=== PATIENT | male | born 1950 | race Caucasian/White ===

== ENCOUNTER → 2016-12-28 | Outpatient (CLI) | payer BC ==
[~2016-12-28] MED LIST: ALL300 PO; ATEN100T PO; CLC100 PO; DTR5 PO; INDO50CA97 PO; LISI20TA3 PO; SERT-234 PO
== END | disposition home or self-care (01) ==
LOC: C.LAB1850 11:41
PROVIDERS: ATTEND Urology
DX: R39.15 Urgency of urination (principal)

== ENCOUNTER 2024-05-03 11:24 | Inpatient (IN) ==
[2024-05-03 12:34] LABS: Basophils # (auto) 0.03 K/uL (0.00-0.20); Basophils % (auto) 0.4 %; Eosinophils # (auto) 0.04 K/uL (0.00-0.50); Eosinophils % (auto) 0.6 %; Hematocrit (blood only) 43.5 % (42.0-52.0); Hemoglobin 15.4 g/dl (14.0-18.0); Immature Granulocytes # (auto) 0.04 K/uL (0.01-0.20); Immature Granulocytes % (auto) 0.6 %; Lymphocytes # (auto) 1.13 K/uL (1.20-3.40); Mean Corpuscular Hemoglobin 34.8 pg (25.0-34.0); Mean Corpuscular Hgb Conc 35.4 g/dL (32.0-36.0); Mean Corpuscular Volume 98.4 fL (80.0-100.0); Monocytes # (auto) 0.54 K/uL (0.11-0.59); Monocytes % (auto) 7.6 %; Neutrophils % (auto) 74.8 %; Platelet Count 342 K/uL (130-400); RDW Coefficient of Variation 11.1 % (11.5-14.5); RDW Standard Deviation 40.8 fL (36.4-46.3); Red Blood Count 4.42 M/uL (4.70-6.10); White Blood Count 7.08 K/ul (4.8-10.8)
[2024-05-03 12:48] LABS: Alanine Aminotransferase 20 U/L (7-52); Albumin Globulin Ratio 1.4 (0.9-2); Albumin Level 3.7 gm/dl (3.4-5.0); Alkaline Phosphatase 96 U/L (34-104); Anion Gap 6 (3-11); Aspartate Aminotransferase 25 U/L (13-39); BUN Creatinine Ratio 13.6 (10-20); Bilirubin,Total 0.6 mg/dl (0.2-1.0); Blood Urea Nitrogen 8 mg/dl (6-23); Calcium 9.3 mg/dl (8.6-10.3); Carbon Dioxide 29 mmol/L (21-32); Chloride 103 mmol/L (98-107); Est GFR (African American) 115.6 ml/min; Est GFR (Non-African American) 99.7 ml/min; Globulin 2.6 gm/dl (2.5-4.0); Glucose 110 mg/dl (70-99(Fasting)); Sodium 138 mmol/L (136-145); Total Protein 6.3 gm/dl (6.0-8.3)
[2024-05-03 12:55] LABS: Troponin I High Sensitivity 5.7 pg/ml (0-20)
--- NOTE | 2024-05-03 13:03 | Emergency Department Note ---
Impression & Plan Generalized weakness, Ambulatory dysfunction ED Provider Note HISTORY OF PRESENT ILLNESS: Patient is a 73-year-old male presenting with ambulatory dysfunction. provides most of history. Reports that the patient was admitted in [place] medically for alcohol withdraw. Reportedly has been sober since discharge. However, he reportedly was noted to have had a small stroke during his stay and was started on Eliquis. reports since being home that she "can no longer care for the patient." Reports that they were at his primary care provider's office and referred to the emergency department "for more medical workup." reports the patient is very unsteady on his feet. Reports he is unable to care for himself and "needs more medical attention." She says that the PCP thought that the patient would benefit from rehab and sent the patient for rehab placement. Denies any chest pain or shortness of breath. No abdominal pain, nausea or vomiting. No dysuria or hematuria. No reported fevers. ROS: as above PHYSICAL EXAM: Constitutional: Patient appears in no acute distress. HENT: Head: Normocephalic and atraumatic. Eyes: EOMI, PERRL Mouth/Throat: Mucous membranes moist. Neck: Trachea midline. Neck supple. Cardiovascular: RRR, No murmurs, rubs or gallops. Intact distal pulses. Pulmonary/Chest: No respiratory distress. Breath sounds clear and equal bilaterally. No wheezes or rales. Abdominal: Abdomen soft, no tenderness, rebound or guarding. Musculoskeletal: No edema, tenderness or deformity noted. Skin: Warm and dry. No rash, erythema, pallor or cyanosis Psychiatric: Appropriate mood and affect for situation. Neurological: Alert and keenly responsive. CN II-XII grossly intact, moving all extremities equally and fully. MDM: - Vitals signs showed hypertension - History obtained via patient. History as above. - Chronic conditions affecting care: HTN; CVA - Differential diagnoses include, but are not limited to: UTI; pneumonia; viral syndrome; electrolyte abnormality; ACS - Order placed for continuous cardiac monitoring. At this time, monitor showed rate of 63 bpm with normal sinus rhythm, per my interpretation. - External medical records reviewed. Paperwork that the patient's brought with them was reviewed from patient's discharge from the hospital in [place]. He was noted to be started on Eliquis during his stay for a stroke. He also was on a Ativan taper. - EKG interpreted by myself showed normal sinus rhythm. Rate bradycardic 59 bpm. QT 420. No acute ischemic changes - Laboratory workup interpreted by myself showed normal WBC; normal PT/INR; normal PT/INR; normal troponin; negative alcohol - CT head wo contrast negative for acute pathology - CXR negative for pneumonia, per my interpretation - Patient's reports that patient is very unsteady on his feet and is having difficulties doing his activities of daily living. They were referred to the emergency department for admission for placement. - Discussion was had with case mgr about patient's case and need for admission - Hospitalist consulted for admission - [facility] ASSESSMENT AND PLAN: Diagnosis: Generalized weakness; ambulatory dysfunction Plan: admit Past Med/Surg History Problem List (Updated 05/03/24 @ 13:03 by Vannessa Campos MD) Ambulatory dysfunction (Acute) Generalized weakness (Acute) Prostate cancer (Acute 01/07/15) "Rising PSA, pretreatment PSA 6.56 Status post ultrasound-guided biopsies, [place] 4+3, 3+4, 3+3 Biopsy stage T2c Prostate volume 30.4 Prostate density 0.216 " Social History Smoking Status: Never smoker Feels Safe at Home: Yes Allergies Allergies Allergy/AdvReac Type Severity Reaction Status Date / Time No Known Allergies Allergy Unverified 04/02/15 07:49 No Known Drug Allergies Allergy Unknown Uncoded 06/04/19 09:12 Home Meds Home Medications Medication Instructions Recorded Confirmed allopurinol 300 mg tablet PO .TAKE ONE TABLET BY M #90 tabs 06/04/19 06/04/19 atenolol 100 mg tablet PO .TAKE 1 TABLET DAILY. 06/04/19 06/04/19 lisinopril 20 mg tablet PO .Take 1 tablet daily 06/04/19 06/04/19 mirabegron 50 mg tablet,extended PO .Take 1 tablet PO [place] #30 tabs 06/04/19 06/04/19 release 24 hr sildenafil (pulm.hypertension) 20 PO .1-5 tablets as neede #60 tabs 06/04/19 06/04/19 mg tablet Results & Data (ED) Vital Signs Vital Signs - 24 hr 05/03/24 11:45 Temperature 36.5 C Temperature Source Temporal Artery Scan Pulse Rate 63 Respiratory Rate 18 Blood Pressure 156/88 H Blood Pressure Mean 110 Pulse Oximetry 99 Oxygen Delivery Method Room Air Sepsis Recent Fever Within 48 Hours No Sepsis New/Unexplained Change in Mental Status No Sepsis Action Taken by Nursing No Action Required Laboratory Data 05/03/24 12:15 05/03/24 12:15 Lab Results 05/03/24 Range/Units 12:15 WBC 7.08 (4.8-10.8) K/ul RBC 4.42 L (4.70-6.10) M/uL Hgb 15.4 (14.0-18.0) g/dl Hct 43.5 (42.0-52.0) % MCV 98.4 (80.0-100.0) fL MCH 34.8 H (25.0-34.0) pg MCHC 35.4 (32.0-36.0) g/dL RDW Std Deviation 40.8 (36.4-46.3) fL RDW Coeff of Aura 11.1 L (11.5-14.5) % Plt Count 342 (130-400) K/uL MPV 10.0 (9.4-12.4) fL Immature Gran % (Auto) 0.6 % Neut % (Auto) 74.8 % Lymph % (Auto) 16.0 % [place] % (Auto) 7.6 % Eos % (Auto) 0.6 % Baso % (Auto) 0.4 % Neut # (Auto) 5.30 (1.40-6.50) K/uL Lymph # (Auto) 1.13 L (1.20-3.40) K/uL [place] # (Auto) 0.54 (0.11-0.59) K/uL Eos # (Auto) 0.04 (0.00-0.50) K/uL Baso # (Auto) 0.03 (0.00-0.20) K/uL Immature Gran # (Auto) 0.04 (0.01-0.20) K/uL PT 10.3 (9.0-12.0) Seconds INR 0.9 (0.9-1.1) APTT 27 (21-31) Seconds PTT Ratio 1.0 Sodium 138 (136-145) mmol/L Potassium 4.0 (3.5-5.1) mmol/L Chloride 103 (98-107) mmol/L Carbon Dioxide 29 (21-32) mmol/L Anion Gap 6 (3-11) BUN 8 (6-23) mg/dl Creatinine 0.59 L (0.6-1.4) mg/dl Est Cr Clr Drug Dosing Not Reportable Est GFR ( Amer) 115.6 ml/min Est GFR (Non-Af Amer) 99.7 ml/min BUN/Creatinine Ratio 13.6 (10-20) Glucose 110 H (70-99(Fasting)) mg/dl Calcium 9.3 (8.6-10.3) mg/dl Magnesium 2.1 (1.7-2.4) mg/dl Total Bilirubin 0.6 (0.2-1.0) mg/dl AST 25 (13-39) U/L ALT 20 (7-52) U/L Alkaline Phosphatase 96 (34-104) U/L Troponin I High Sens 5.7 (0-20) pg/ml Total Protein 6.3 (6.0-8.3) gm/dl Albumin 3.7 (3.4-5.0) gm/dl Globulin 2.6 (2.5-4.0) gm/dl Albumin/Globulin Ratio 1.4 (0.9-2) Ethyl Alcohol mg/dL < 10.0 (<10.0) mg/dl Imaging Data Radiologist's Impression: Head CT 05/03/24 12:24 CT head/brain wo con CLINICAL HISTORY: weakness Technique: Contiguous axial CT images of the head were acquired from the base of the skull to the vertex without intravenous contrast administration. Images were viewed in brain, subdural and bone windows. Automated dose lowering techniques and/or adjustment according to patient size were utilized for this exam. Comparison: None available at the time of this dictation. Findings: Areas of decreased attenuation are present in the periventricular and subcortical white matter bilaterally consistent with small vessel ischemic disease. Generalized cerebral atrophy with commensurate enlargement of the ventricles, sulci, and cisterns is also present. There is no acute intracranial hemorrhage or evidence of acute territorial infarction. No shift of the midline structures, mass effect, or extra-axial abnormalities are shown. Atherosclerotic calcifications are present in the intracranial segments of the internal carotid arteries. Imaged portions of the paranasal sinuses and mastoid air cells are clear. The orbits appear normal. There are no acute fractures of the calvaria or scalp swelling. Impression: No acute intracranial hemorrhage, no evidence of acute territorial infarction or other acute intracranial disease process. ACT 112: Negative or not required by law. Electronically signed by: Manas Romero M.D. 05/03/2024 1:19 PM Discharge Plan Visit Data Chief Complaint: Referred by Doctor Stated Complaint: EVALUATION FOR STROKE SYMPTOMS ED Provider: Vannessa Campos Discharge Problem: Generalized weakness, Ambulatory dysfunction Forms Stand Alone Forms: [facility] Prescriptions Prescriptions: No Action lisinopril 20 mg tablet PO .Take 1 tablet daily atenolol 100 mg tablet PO .TAKE 1 TABLET DAILY. Myrbetriq 50 mg tablet extended release 24 hr PO .Take 1 tablet PO [place] Qty: 30 sildenafil (pulm.hypertension) 20 mg tablet PO .1-5 tablets as neede Qty: 60 allopurinol 300 mg tablet PO .TAKE ONE TABLET BY M Qty: 90 Referrals Referrals: Marc George MD [Outside Practitioners] -
[2024-05-03 13:09] LABS: INR 0.9 (0.9-1.1); Partial Thromboplastin Time 27 Seconds (21-31); Prothrombin Time 10.3 Seconds (9.0-12.0)
[2024-05-03 13:16] LABS: Magnesium 2.1 mg/dl (1.7-2.4)
--- NOTE | 2024-05-03 13:20 | CT Scan Report ---
CT head/brain wo con CLINICAL HISTORY: weakness Technique: Contiguous axial CT images of the head were acquired from the base of the skull to the joey reanna without intravenous contrast administration. Images were viewed in brain, subdural and bone [facility]. Automated dose lowering techniques and/or adjustment according to patient size were utilized for this exam. Comparison: None available at the time of this dictation. Findings: Areas of decreased attenuation are present in the periventricular and subcortical white matter bilate rally consistent with small vessel ischemic disease. Generalized cerebral atrophy with commensurate e nlargement of the ventricles, sulci, and cisterns is also present. There is no acute intracranial hem orrhage or evidence of acute territorial infarction. No shift of the midline structures, mass effect, or extra-axial abnormalities are shown. Atherosclerotic calcifications are present in the intracran ial segments of the internal carotid arteries. Imaged portions of the paranasal sinuses and mastoid air cells are clear. The orbits appear normal. There are no acute fractures of the calvaria or scalp swelling. Impression: No acute intracranial hemorrhage, no evidence of acute territorial infarction or other acute intracra nial disease process. ACT 112: Negative or not required by law. Electronically signed by: Manas Romero M.D. 05/03/2024 1:19 PM
--- NOTE | 2024-05-03 13:31 | XRay Report ---
SINGLE VIEW CHEST CLINICAL HISTORY: Atypical chest pain FINDINGS: An AP, portable, upright chest radiograph is compared to study dated 03/17/2015. The heart i s enlarged measuring atherosclerotic calcification of the thoracic aorta. The pulmonary vasculature i s noncongested. Mild scarring/atelectasis is seen at the lung bases. The lungs and pleural spaces are otherwise clear. No pneumothorax is seen. The skeletal structures are osteopenic. The bony thorax is grossly intact. Arthritic change is noted in the shoulders. IMPRESSION: Cardiomegaly with no active disease in the chest. ACT 112: Negative or not required by law. Electronically signed by: Vernon Schreiber M.D. 05/03/2024 1:30 PM
[2024-05-03] MEDS ORDERED: ONDANSETRON INJ 2 MG/ML 2 ML VIAL IV PRN (13:32)
[2024-05-03] MEDS ORDERED: ALUMINUM/MAGNESIUM SUSP 30 ML UDC PO PRN (13:32)
[2024-05-03] MEDS ORDERED: ACETAMINOPHEN 325 MG TAB PO PRN (13:32)
--- NOTE | 2024-05-03 14:30 | History & Physical Report ---
Date of Service May 03, 2024 Assessment & Plan (1) HTN (hypertension): Plan: BP remains elevated, patient took his Lisinopril today will add Nifedipine (2) Depression: Plan: continue Sertraline, denies suicidal ideations (3) CVA (cerebral vascular accident): Plan: has mild right sided weakness continue current meds will add Atorvastatin obtain lipid profile, hemoglobin A1 c consult neurology has difficulties ambulating consult PT (4) Alcohol abuse: Plan: sober, went through detox on Naltrexone Folic acid Thiamine History of Present Illness Chief Complaint: generalized weakness Primary Care Provider: Marc George MD Patient is a 73-year-old male with h/o HTN, depression, alcohol abuse , prostate ca, h/o TURP, patient was living with his children in [place] for 1.5 years stopped taking his med and was heavily drinking alcohol. He who was recently hospitalized in [place] for alcohol withdraw. Reportedly has been sober since discharge. However, he reportedly was noted to have had a small stroke during his stay and right leg DVT was started on Eliquis. reports since being home that she "can no longer care for the patient." Reports that they were at his primary care provider's office and referred to the emergency department "for more medical workup." reports the patient is very unsteady on his feet. Reports he is unable to care for himself and "needs more medical attention." Denies any chest pain or shortness of breath. No abdominal pain, nausea or vomiting. No dysuria or hematuria. No reported fevers. Allergies Allergy/AdvReac Type Severity Reaction Status Date / Time No Known Allergies Allergy Unverified 05/03/24 13:49 No Known Drug Allergies Allergy Unknown 0 Uncoded 05/03/24 13:49 Home Medications Medication Instructions Recorded Confirmed Type apixaban 5 mg tablet (Eliquis) 5 mg PO BID 05/03/24 05/03/24 History folic acid 1 mg tablet 1 mg PO DAILY 05/03/24 05/03/24 History lisinopril 40 mg tablet 40 mg PO DAILY 05/03/24 05/03/24 History multivitamin with folic acid 400 1 tab PO DAILY 05/03/24 05/03/24 History mcg tablet naltrexone 50 mg tablet 50 mg PO CQWK 05/03/24 05/03/24 History polyethylene glycol 3350 17 17 g PO DAILY 05/03/24 05/03/24 History gram/dose oral powder (Miralax) sertraline 50 mg tablet 50 mg PO DAILY 05/03/24 05/03/24 History thiamine HCl (vitamin B1) 100 mg 100 mg PO DAILY 05/03/24 05/03/24 History tablet (Vitamin B-1) Past Med/Surg History Problem List (Updated 05/03/24 @ 14:21 by Ynes Verduzco MD) Prostate cancer Osteoarthrosis Gout, joint Alcohol abuse CVA (cerebral vascular accident) Depression HTN (hypertension) Ambulatory dysfunction (Acute) Generalized weakness (Acute) Prostate cancer (Acute 01/07/15) "Rising PSA, pretreatment PSA 6.56 Status post ultrasound-guided biopsies, [place] 4+3, 3+4, 3+3 Biopsy stage T2c Prostate volume 30.4 Prostate density 0.216 " Social History Smoking Status: Never smoker Feels Safe at Home: Yes Review of Systems Review of Systems: All systems reviewed & are unremarkable except as noted in Subjective Physical Exam Physical Exam: head atraumatic neck supple chest CTA b/l heart S1s2 regular, no murmurs,gallops abdomen soft, nt, nd, bs present extremities right leg swelling present neuro AAO times 2, right arm, leg mild weakness, gait was nor tested Results & Data Results & Data Vital Signs (Past 12 Hours) Vital Signs Temp Pulse Pulse Resp BP BP Pulse Ox 05/03/24 13:37 58 L 05/03/24 13:32 58 L 16 180/87 H 97 05/03/24 11:45 36.5 C 63 18 156/88 H 99 O2 Del Method 05/03/24 13:37 05/03/24 13:32 05/03/24 11:45 Room Air Laboratory Results Abnormal lab results 05/03/24 Range/Units 12:15 RBC 4.42 L (4.70-6.10) M/uL MCH 34.8 H (25.0-34.0) pg RDW Coeff of Aura 11.1 L (11.5-14.5) % Lymph # (Auto) 1.13 L (1.20-3.40) K/uL Creatinine 0.59 L (0.6-1.4) mg/dl Glucose 110 H (70-99(Fasting)) mg/dl Diagnostic Findings Chest X-Ray 05/03/24 11:49 SINGLE VIEW CHEST CLINICAL HISTORY: Atypical chest pain FINDINGS: An AP, portable, upright chest radiograph is compared to study dated 03/17/2015. The heart is enlarged measuring atherosclerotic calcification of the thoracic aorta. The pulmonary vasculature is noncongested. Mild scarring/atelectasis is seen at the lung bases. The lungs and pleural spaces are otherwise clear. No pneumothorax is seen. The skeletal structures are osteopenic. The bony thorax is grossly intact. Arthritic change is noted in the shoulders. IMPRESSION: Cardiomegaly with no active disease in the chest. ACT 112: Negative or not required by law. Electronically signed by: Vernon Schreiber M.D. 05/03/2024 1:[address] 05/03/24 12:24 CT head/brain wo con CLINICAL HISTORY: weakness Technique: Contiguous axial CT images of the head were acquired from the base of the skull to the vertex without intravenous contrast administration. Images were viewed in brain, subdural and bone windows. Automated dose lowering techniques and/or adjustment according to patient size were utilized for this exam. Comparison: None available at the time of this dictation. Findings: Areas of decreased attenuation are present in the periventricular and subcortical white matter bilaterally consistent with small vessel ischemic disease. Generalized cerebral atrophy with commensurate enlargement of the ventricles, sulci, and cisterns is also present. There is no acute intracranial hemorrhage or evidence of acute territorial infarction. No shift of the midline structures, mass effect, or extra-axial abnormalities are shown. Atherosclerotic calcifications are present in the intracranial segments of the internal carotid arteries. Imaged portions of the paranasal sinuses and mastoid air cells are clear. The orbits appear normal. There are no acute fractures of the calvaria or scalp swelling. Impression: No acute intracranial hemorrhage, no evidence of acute territorial infarction or other acute intracranial disease process. ACT 112: Negative or not required by law. Electronically signed by: Manas Romero M.D. 05/03/2024 1:19 PM ECG Additional Comments: sinus bradycardia Code Status & VTE Plan Code Status full PG Care Time/CCT Total # of Minutes Spent Total Time Spent with Patient: Total time spent is greater than 50% in coordination of care (as documented) at patient's floor/unit and/or counseling patient: Coding Level of Care Code 52689 INT INP/OBS CARE 3/75MIN Diagnoses HTN (hypertension) I10 Depression F32.A CVA (cerebral vascular accident) I63.9 Alcohol abuse F10.10
[2024-05-03 14:35] LABS: Influenza A virus by PCR Negative (Neg); Influenza B virus by PCR Negative (Neg); RSV by PCR Negative (Neg); SARS CoV2 RNA(COVID-19) Ceph NEGATIVE (Negative)
[2024-05-03] MEDS: NIFEdipine EXTENDED REL 30 MG TABCR PO STA ×2 (14:48→18:45)
[2024-05-03 15:11] LABS: Chol HDL Ratio 2.4 (0-5); Cholesterol 194 mg/dl (0-200); HDL Cholesterol 82 mg/dl; LDL Cholesterol Calculated 94 mg/dl; Triglycerides 89 mg/dl (0-150); VLDL Cholesterol 18 mg/dl (0-30)
--- NOTE | 2024-05-03 15:22 | Electrocardiogram Report ---
Test Reason : Blood Pressure : / mmHG Vent. Rate : 059 BPM Atrial Rate : 059 BPM P-R Int : 172 ms QRS Dur : 076 ms QT Int : 420 ms P-R-T Axes : -23 -11 043 degrees QTc Int : 415 ms Sinus bradycardia Otherwise normal ECG When compared with ECG of 17-MAR-2015 12:54, Questionable change in QRS axis Confirmed by Blas Christian ([id number]) on 05/03/2024 3:21:56 PM Referred By: REFERRED SELF Confirmed By:Blas Christian
[2024-05-03 15:32] LABS: Appearance Urine Clear (Clear); Bilirubin Urine Negative (Negative); Blood Urine Negative (Negative); Color Urine Yellow; Glucose Urine UA Negative (Negative); Ketones Urine Negative (Negative); Leukocyte Esterase Urine Negative (Negative); Nitrite Urine Negative (Negative); Protein Urine Negative (Negative); Specific Gravity Urine 1.012 (1.000-1.030); Urobilinogen Urine Negative (Negative); pH Urine 8.5 (4.5-7.5)
[2024-05-03] MEDS ORDERED: lisinopril 20 MG TAB PO SCH (16:42)
--- NOTE | 2024-05-03 16:46 | Ultrasound Report ---
ULTRASOUND OF THE CAROTID ARTERIES CLINICAL HISTORY: CVA TECHNIQUE: Real-time, grayscale, and color Doppler sonography of the bilateral carotid arteries is pe rformed. Images are reviewed in the transverse and longitudinal planes. COMPARISON: None available at the time of this dictation. FINDINGS: The carotid arteries are patent bilaterally and demonstrate antegrade flow. There is moderate atheros clerotic plaque on the right and mild atherosclerotic plaque on the left. Normal doppler arterial wav eforms are seen throughout. Velocity measurements are listed below. Common carotid peak systolic velocity (cm/sec): RIGHT: 96 LEFT: 103 ICA peak systolic velocity (cm/sec): RIGHT: 90 LEFT: 87 ICA/CC peak systolic ratio: RIGHT: 0.9 LEFT: 0.8 Antegrade flow was shown in the vertebral arteries. The external carotid arteries are patent. IMPRESSION: 1. There is no sonographic evidence of hemodynamically significant stenosis in the right or left car otid arterial system. 2. Antegrade flow is shown in the vertebral arteries. Society of Radiologists in Ultrasound consensus guidelines: Normal: ICA PSV is <125 cm/sec and no plaque or intimal thickening is visible sonographically additional criteria include ICA/CCA PSV ratio <2.0 and ICA EDV <40 cm/sec <50% ICA stenosis: ICA PSV is <125 cm/sec and plaque or intimal thickening is visible sonographically additional criteria include ICA/CCA PSV ratio <2.0 and ICA EDV <40 cm/sec 50-69% ICA stenosis: ICA PSV is 125-230 cm/sec and plaque is visible sonographically additional criteria include ICA/CCA PSV ratio of 2.0-4.0 and ICA EDV of 40-100 cm/sec ?70% ICA stenosis but less than near occlusion: ICA PSV is >230 cm/sec and visible plaque and luminal narrowing are seen at castellanos-scale and color Dopp ler ultrasound (the higher the Doppler parameters lie above the threshold of 230 cm/sec, the greater the likelihood of severe disease) additional criteria include ICA/CCA PSV ratio >4 and ICA EDV >100 cm/sec ACT 112: Negative or not required by law. Electronically signed by: Manas Romero M.D. 05/03/2024 4:45 PM
[2024-05-03] MEDS: NALTREXONE HCL 50 MG TAB PO SCH (18:01)
[2024-05-03] MEDS: allopurinoL 100 MG TAB PO SCH (18:01)
[2024-05-03] MEDS ORDERED: hydrALAZINE HCL 25 MG TAB PO PRN (18:04)
[2024-05-03] MEDS ORDERED: APIXABAN 5 MG TABLET PO SCH (21:00)
--- NOTE | 2024-05-03 21:30 | Magnetic Resonance Report ---
MR brain wo con CLINICAL HISTORY: cva TECHNIQUE: Multiplanar and multisequence MR images of the brain were obtained without intravenous con trast. Comparison: Comparison is made to CT head 04/25/2024 FINDINGS: No abnormal restricted diffusion is identified. Foci of T2 and FLAIR hyperintensity are noted in the paraventricular areas consistent with chronic small vessel ischemic disease. Ex vacuo ventriculomegal y and sulcal enlargement is noted compatible with diffuse volume loss. Focal encephalomalacia is in t he cerebellum. No mass is seen. There is no mass effect or midline shift. There is no evidence of acu te intraparenchymal hemorrhage. No extra axial fluid collections are seen. The corpus callosum, pitui tary gland, and cerebellar tonsils appear grossly unremarkable. Flow voids of the major intracranial arterial vessels are identified. The imaged portions of the para nasal sinuses, mastoid air cells, and orbits are unremarkable. IMPRESSION: No acute abnormality and in particular no evidence of acute infarct. ACT 112: Negative or not required by law. Electronically signed by: Manas Romero M.D. 05/03/2024 9:29 PM
[2024-05-03] MEDS: ATORVASTATIN 40 MG TAB PO SCH (21:40)
[2024-05-03] MEDS: APIXABAN 5 MG TABLET PO SCH (21:40)
[2024-05-03 22:44] LABS: Estimated Average Glucose 103 mg/dl; Hemoglobin A1C 5.2 % (4.5-5.6)
[2024-05-04] MEDS: POLYETHYLENE (MIRALAX) 17 GM PACK PO PRN (08:12)
[2024-05-04] MEDS: lisinopril 40 MG TAB PO SCH (08:12)
[2024-05-04] MEDS: THIAMINE HCL 100 MG TAB PO SCH (08:13)
[2024-05-04] MEDS: MULTIVITAMIN TAB PO SCH (08:13)
[2024-05-04] MEDS: FOLIC ACID 1 MG TAB PO SCH (08:13)
[2024-05-04] MEDS: SERTRALINE HCL 50 MG TABLET PO SCH (08:13)
[2024-05-04] MEDS ORDERED: hydrALAZINE HCL 20 MG/ML VIAL IV PRN (08:39)
[2024-05-04] MEDS ORDERED: FOLIC ACID 1 MG TAB PO SCH (09:00)
[2024-05-04] MEDS ORDERED: POLYETHYLENE (MIRALAX) 17 GM PACK PO SCH (09:00)
[2024-05-04] MEDS ORDERED: THIAMINE HCL 100 MG TAB PO SCH (09:00)
--- NOTE | 2024-05-04 12:09 | Hospitalist Progress Note ---
Date of Service May 04, 2024 Assessment & Plan (1) HTN (hypertension): Plan: Now normalized after receiving 1 dose of nifedipine in the ED. Continue lisinopril. (2) Depression: Plan: Stable. Continue Sertraline. Denies suicidal ideations (3) CVA (cerebral vascular accident): Plan: He insists he had no recent CVA and was not recently hospitalized. Atorvastatin was added on admission. Admission brain MRI scan reveals some cerebellar malacia but this could be due to alcohol intake. Nothing acute. Carotid Doppler study is unremarkable. (4) Alcohol abuse: Plan: He recently went through detox. He takes Naltrexone. Continue folic acid and thiamine Plan To be determined Admission and Anticipated Discharge Date Admission Date: May 03, 2024 Subjective Alert and oriented. He is not sure why he is hospitalized. Apparently he was living in [place] recently when he fell down but could not get up by himself. He was alone at the time. He denies having a recent CVA. He also denies recently seeing Dr. Castano. OT and PT assessments have been requested. Blood pressure was elevated in the ED and has now normalized after he received nifedipine once. He remains on lisinopril 40 mg daily. Review of Systems 2 Review of Systems: Constitutional-no fever or chills ENT-no blurred vision, no double vision, no epistaxis, no sore throat Respiratory-no cough, no wheezing, no shortness of breath Cardiac-no palpitations, no chest pain, no syncope GI-no nausea, vomiting, diarrhea, melena, hematochezia -no urinary retention, no urinary incontinence, no dysuria, no hematuria Musculoskeletal-no joint pain, no muscle tenderness Skin-no bruising, no rashes, no pruritus Neuro-no isolated weakness, no paresthesia Psych-no depression, no anxiety Physical Exam 2 Physical Exam: General-alert and oriented x3, no fever, no chills HEENT-head atraumatic and normocephalic, pupils equal and reactive to light, extraocular muscles intact Neck-no lymphadenopathy or thyromegaly, trachea midline Chest-clear to auscultation. No rales, wheezing or rhonchi Cardiac-regular rate and rhythm, normal S1 and S2 Abdomen-normal bowel sounds, no hepatosplenomegaly Extremities-no cyanosis, clubbing, or edema Neuro-cranial nerves II through XII intact, motor and sensory function within normal limits, strength symmetrical, no focal deficits Psych-flat affect Results & Data Results & Data Vital Signs (Past 12 Hours) Vital Signs Temp Pulse Pulse Resp BP BP Pulse Ox 05/04/24 11:38 37 C 60 17 120/69 94 05/04/24 07:34 63 05/04/24 07:29 37.1 C 61 18 107/62 97 05/04/24 04:12 37.0 C 69 18 94/62 L 96 O2 Del Method 05/04/24 11:38 Room Air 05/04/24 07:34 05/04/24 07:29 Room Air 05/04/24 04:12 Room Air Laboratory Results 05/03/24 12:15 05/03/24 12:15 PG Care Time/CCT Total # of Minutes Spent Total Time Spent with Patient: Total time spent is greater than 50% in coordination of care (as documented) at patient's floor/unit and/or counseling patient: Coding Level of Care Code 45038 SUB INP/OBS CARE 3/50MIN Diagnoses HTN (hypertension) I10 Depression F32.A CVA (cerebral vascular accident) I63.9 Alcohol abuse F10.10
--- NOTE | 2024-05-04 15:32 | XCELERA ---
[id number]
--- NOTE | 2024-05-05 15:01 | Hospitalist Progress Note ---
Date of Service May 05, 2024 Assessment & Plan (1) HTN (hypertension): Plan: Now normalized after receiving 1 dose of nifedipine in the ED. Continue lisinopril. (2) Depression: Plan: Stable. Continue Sertraline. Denies suicidal ideations (3) CVA (cerebral vascular accident): Plan: He insists he had no recent CVA and was not recently hospitalized. Atorvastatin was added on admission. Admission brain MRI scan reveals some cerebellar malacia but this could be due to alcohol intake. Nothing acute. Carotid Doppler study is unremarkable. (4) Alcohol abuse: Plan: He recently went through detox. He takes Naltrexone. Continue folic acid and thiamine Plan To be determined. Awaiting OT and PT evaluations Admission and Anticipated Discharge Date Admission Date: May 03, 2024 Subjective Alert and oriented. No new problems. Cardiac echo reveals normal ejection fraction with moderate LVH and no evidence of atrial septal defect. Thyroid levels were checked and are normal. Blood pressure remained stable after Procardia given once on admission. Blood pressure 130/69 this morning and heart rate 52. OT and PT evaluations will determine disposition. Review of Systems 2 Review of Systems: Constitutional-no fever or chills ENT-no blurred vision, no double vision, no epistaxis, no sore throat Respiratory-no cough, no wheezing, no shortness of breath Cardiac-no palpitations, no chest pain, no syncope GI-no nausea, vomiting, diarrhea, melena, hematochezia -no urinary retention, no urinary incontinence, no dysuria, no hematuria Musculoskeletal-no joint pain, no muscle tenderness Skin-no bruising, no rashes, no pruritus Neuro-no isolated weakness, no paresthesia Psych-no depression, no anxiety Physical Exam 2 Physical Exam: General-alert and oriented x3, no fever, no chills HEENT-head atraumatic and normocephalic, pupils equal and reactive to light, extraocular muscles intact Neck-no lymphadenopathy or thyromegaly, trachea midline Chest-clear to auscultation. No rales, wheezing or rhonchi Cardiac-regular rate and rhythm, normal S1 and S2 Abdomen-normal bowel sounds, no hepatosplenomegaly Extremities-no cyanosis, clubbing, or edema Neuro-cranial nerves II through XII intact, motor and sensory function within normal limits, strength symmetrical, no focal deficits Psych-flat affect Results & Data Results & Data Vital Signs (Past 12 Hours) Vital Signs Temp Pulse Pulse Resp BP BP Pulse Ox 05/05/24 13:52 86 05/05/24 11:03 36.7 C 60 16 116/71 96 05/05/24 08:05 36.9 C 52 L 16 130/69 97 05/05/24 08:00 60 05/05/24 04:15 37 C 55 L 18 125/67 96 O2 Del Method 05/05/24 13:52 05/05/24 11:03 Room Air 05/05/24 08:05 Room Air 05/05/24 08:00 05/05/24 04:15 Room Air Laboratory Results 05/03/24 12:15 05/03/24 12:15 PG Care Time/CCT Total # of Minutes Spent Total Time Spent with Patient: Total time spent is greater than 50% in coordination of care (as documented) at patient's floor/unit and/or counseling patient: Coding Level of Care Code 66494 SUB INP/OBS CARE 2/35MIN Diagnoses HTN (hypertension) I10 Depression F32.A CVA (cerebral vascular accident) I63.9 Alcohol abuse F10.10
--- NOTE | 2024-05-06 15:22 | Hospitalist Progress Note ---
Date of Service May 06, 2024 Assessment & Plan (1) HTN (hypertension): Plan: Now normalized after receiving 1 dose of nifedipine in the ED. Continue lisinopril. (2) Depression: Plan: Stable. Continue Sertraline. Denies suicidal ideations (3) CVA (cerebral vascular accident): Plan: He insists he had no recent CVA and was not recently hospitalized. Atorvastatin was added on admission. Admission brain MRI scan reveals some cerebellar malacia but this could be due to alcohol intake. Nothing acute. Carotid Doppler study is unremarkable. (4) Alcohol abuse: Plan: He recently went through detox. He takes Naltrexone. Continue folic acid and thiamine Plan Awaiting placement at either [facility] or [facility]. He is medically stable. Admission and Anticipated Discharge Date Admission Date: May 03, 2024 Subjective Alert and oriented. No new problems. Referrals have been made for placement at [facility] or [facility]. Review of Systems 2 Review of Systems: Constitutional-no fever or chills ENT-no blurred vision, no double vision, no epistaxis, no sore throat Respiratory-no cough, no wheezing, no shortness of breath Cardiac-no palpitations, no chest pain, no syncope GI-no nausea, vomiting, diarrhea, melena, hematochezia -no urinary retention, no urinary incontinence, no dysuria, no hematuria Musculoskeletal-no joint pain, no muscle tenderness Skin-no bruising, no rashes, no pruritus Neuro-no isolated weakness, no paresthesia Psych-no depression, no anxiety Physical Exam 2 Physical Exam: General-alert and oriented x3, no fever, no chills HEENT-head atraumatic and normocephalic, pupils equal and reactive to light, extraocular muscles intact Neck-no lymphadenopathy or thyromegaly, trachea midline Chest-clear to auscultation. No rales, wheezing or rhonchi Cardiac-regular rate and rhythm, normal S1 and S2 Abdomen-normal bowel sounds, no hepatosplenomegaly Extremities-no cyanosis, clubbing, or edema Neuro-cranial nerves II through XII intact, motor and sensory function within normal limits, strength symmetrical, no focal deficits Psych-flat affect Results & Data Results & Data Vital Signs (Past 12 Hours) Vital Signs Temp Pulse Pulse Resp BP Pulse Ox O2 Del Method 05/06/24 14:00 80 05/06/24 11:37 36.6 C 75 18 111/69 98 Room Air 05/06/24 07:33 36.7 C 55 L 16 131/67 98 Room Air 05/06/24 05:30 53 L Laboratory Results 05/03/24 12:15 05/03/24 12:15 PG Care Time/CCT Total # of Minutes Spent Total Time Spent with Patient: Total time spent is greater than 50% in coordination of care (as documented) at patient's floor/unit and/or counseling patient: Coding Level of Care Code 70894 SUB INP/OBS CARE 2/35MIN Diagnoses HTN (hypertension) I10 Depression F32.A CVA (cerebral vascular accident) I63.9 Alcohol abuse F10.10
--- NOTE | 2024-05-07 09:11 | Hospitalist Progress Note ---
Date of Service May 07, 2024 Assessment & Plan (1) HTN (hypertension): Plan: Now normalized after receiving 1 dose of nifedipine in the ED. Continue lisinopril. (2) Depression: Plan: Stable. Continue Sertraline. Denies suicidal ideations or severe depression (3) CVA (cerebral vascular accident): Plan: He insists he had no recent CVA and was not recently hospitalized. Atorvastatin was added on admission. Admission brain MRI scan reveals some cerebellar malacia but this could be due to alcohol intake. Nothing acute. Carotid Doppler study is unremarkable. (4) Alcohol abuse: Plan: He recently went through detox. He takes Naltrexone. Continue folic acid and thiamine Plan Therapy evaluations are in the middle we will see if insurance will permit beneficial short-term rehab Admission and Anticipated Discharge Date Admission Date: May 03, 2024 Subjective Patient alert and oriented. Did fairly well with therapy evaluations. Still awaiting if patient would benefit from subacute rehab. However is improving daily Physical Exam Physical Exam: Awake alert oriented x 3 no complaints physically other than weakness Card exam is regular without murmur Lungs are clear without wheezes or crackles Results & Data Results & Data Vital Signs (Past 12 Hours) Vital Signs Temp Pulse Pulse Resp BP Pulse Ox O2 Del Method 05/07/24 08:40 98.2 F 54 L 16 149/80 H 97 Room Air 05/07/24 07:29 60 05/06/24 23:25 98.4 F 62 18 136/85 96 Room Air 05/06/24 21:51 66 PG Care Time/CCT Total # of Minutes Spent Total Time Spent with Patient: Total time spent is greater than 50% in coordination of care (as documented) at patient's floor/unit and/or counseling patient: Coding Level of Care Code 79642 SUB INP/OBS CARE 2/35MIN Diagnoses HTN (hypertension) I10 Depression F32.A CVA (cerebral vascular accident) I63.9 Alcohol abuse F10.10
[2024-05-07] MEDS: MELATONIN 3 MG TAB PO PRN (21:31)
[2024-05-08 06:29] LABS: Hematocrit (blood only) 39.7 % (42.0-52.0); Hemoglobin 13.5 g/dl (14.0-18.0); Mean Corpuscular Hemoglobin 33.5 pg (25.0-34.0); Mean Corpuscular Volume 98.5 fL (80.0-100.0); Mean Platelet Volume 9.9 fL (9.4-12.4); Platelet Count 312 K/uL (130-400); RDW Standard Deviation 40.1 fL (36.4-46.3); Red Blood Count 4.03 M/uL (4.70-6.10); White Blood Count 6.69 K/ul (4.8-10.8)
[2024-05-08 06:35] LABS: Calcium 8.3 mg/dl (8.6-10.3); Creatinine Clr Calc Pharmacy 97.7 ml/min; Est GFR (African American) 113.3 ml/min; Est GFR (Non-African American) 97.7 ml/min; Magnesium 1.8 mg/dl (1.7-2.4); Potassium 4.1 mmol/L (3.5-5.1)
--- NOTE | 2024-05-08 13:29 | Discharge Summary ---
Discharge Summary Date of Service May 08, 2024 Principal Dx & Hospital Course #1 = Principal Diagnosis (1) HTN (hypertension): Patient arrived emergency department with ambulatory dysfunction hypertensive urgency/uncontrolled hypertension. This was controlled after 1 dose of nifedipine in the ER. Continue his home lisinopril he had reasonable control blood pressure during his hospital stay and improved daily with physical therapy to bedside such that he was able to be discharged home with home physical therapy. (2) Depression: Stable. Continue Sertraline. Denies suicidal ideations or severe depression (3) CVA (cerebral vascular accident): He insists he had no recent CVA and was not recently hospitalized. Admission brain MRI scan reveals some cerebellar malacia but this could be due to alcohol intake. Nothing acute. Therefore no aspirin or atorvastatin were indicated. carotid Doppler study is unremarkable. (4) Alcohol abuse: He recently went through detox. He takes Naltrexone. Continue folic acid and thiamine Plan Therapy evaluations are favorable improving daily patient be discharged home with home health in the care of his friend Lloyd Notes For Next Care Provider Adherence to medicine compliance is likely very important as well as abstinence from alcohol. Patient continues to be surveyed for repeat return alcohol use and directed into alcohol rehab if needed Admission HPI Per Admitting Provider Patient is a 73-year-old male with h/o HTN, depression, alcohol abuse , prostate ca, h/o TURP, patient was living with his children in [place] for 1.5 years stopped taking his med and was heavily drinking alcohol. He who was recently hospitalized in [place] for alcohol withdraw. Reportedly has been sober since discharge. However, he reportedly was noted to have had a small stroke during his stay and right leg DVT was started on Eliquis. reports since being home that she "can no longer care for the patient." Reports that they were at his primary care provider's office and referred to the emergency department "for more medical workup." reports the patient is very unsteady on his feet. Reports he is unable to care for himself and "needs more medical attention." Denies any chest pain or shortness of breath. No abdominal pain, nausea or vomiting. No dysuria or hematuria. No reported fevers. Discharge Exam Awake alert oriented x 3 no complaints physically other than weakness Card exam is regular without murmur Lungs are clear without wheezes or crackles Updated Medication List Medication Instructions Recorded Confirmed Type apixaban 5 mg tablet (Eliquis) 5 mg PO BID 05/03/24 05/03/24 History folic acid 1 mg tablet 1 mg PO DAILY 05/03/24 05/03/24 History lisinopril 40 mg tablet 40 mg PO DAILY 05/03/24 05/03/24 History multivitamin with folic acid 400 1 tab PO DAILY 05/03/24 05/03/24 History mcg tablet naltrexone 50 mg tablet 50 mg PO CQWK 05/03/24 05/03/24 History polyethylene glycol 3350 17 17 g PO DAILY 05/03/24 05/03/24 History gram/dose oral powder (Miralax) sertraline 50 mg tablet 50 mg PO DAILY 05/03/24 05/03/24 History thiamine HCl (vitamin B1) 100 mg 100 mg PO DAILY 05/03/24 05/03/24 History tablet (Vitamin B-1) allopurinol 100 mg tablet 100 mg PO DAILY #30 tabs 05/08/24 Rx Hospital Stay Data Consultations 05/03/24 13:25 ED Decision to Admit Stat Diagnostic Imagining Performed 05/03/24 12:24 CT head/brain wo con Stat 05/03/24 14:31 US carotid doppler BI Stat 05/03/24 18:38 MRI Brain [MR brain wo con] Routine Discharge Instructions Given to Patient (Per Discharging Provider) please avoid all exposure to alcohol take all your medicines as prescribed participate in home physical therapy follow up with your family doctor Total Time Total Time Spent Total Time Spent (In Minutes): Discharge third Coding Level of Care Code 17351 INP/OBS DISCH >30 MIN Diagnoses HTN (hypertension) I10 Depression F32.A CVA (cerebral vascular accident) I63.9 Alcohol abuse F10.10
== END 2024-05-08 17:22 | disposition home health service (06) | DRG 305 ==
LOC: ED 11:24 → SUATTDRO 13:32 → 2W 13:32